=== PATIENT | male | born 1970 | race Caucasian/White ===

== ENCOUNTER → 2018-09-12 | Outpatient (REF) | payer SELFPAY ==
[~2018-09-12] MED LIST: ALLO-119 PO; HYDR-653 PO; HYDR2TAB74 PO; KET10 PO; LISI-362 PO; PRED20TA6 PO
== END ==
LOC: ZZSENDIN 15:44
PROVIDERS: ATTEND Family Medicine
DX: R31.9 Hematuria, unspecified (principal)
CPT/HCPCS: 81001; 87088

== ENCOUNTER → 2018-09-15 | Outpatient (CLI) | payer SELFPAY ==
--- NOTE | 2018-09-15 13:34 | RADIOLOGY IMAGING REPORT ---
FACILITY: [facility] [place] PATIENT NAME: Cassie Dominguez : 1970 MR: [id number] V: [id number] EXAM DATE: ORDERING PHYSICIAN: MICH AUGUSTIN TECHNOLOGIST: Location: [facility] [place] Patient: Cassie Dominguez : 1970 Visit/Account:[id number] Date of Sevice: 09/15/2018 ABDOMEN/PELVIS W/O CONTRAST HISTORY: Right lower quadrant pain, concern for stone, history of hernia surgery TECHNIQUE: Axial images acquired through the abdomen/pelvis. Coronal and sagittal reformatting also performed. No IV contrast administered.Dose Lowering Technique One of the following dose optimization techniques was utilized in the performance of this exam: Autom ated exposure control; adjustment of the mA and/or kV according to the patient's size; or use of an i terative reconstruction technique. Specific details can be referenced in the facility's radiology C T exam operational policy. COMPARISON: None. FINDINGS: Visualized lung bases: There is a 3 mm noncalcified nodule anterolateral left lower lobe best seen o n image 19 of series 5 Hepatobiliary: Negative. Spleen: Negative. Adrenals: Negative. Pancreas: Negative. Kidneys ureters and bladder: There is a 2.1 cm hypoattenuating mass mid pole of the right kidney Houn sfield units suggest this is a cyst there is a subcentimeter hypodensity lower pole of the left kidne y is too small to characterize. There does appear to be a small hyperdensity along the inferior aspe ct of this lesion which could represent calcifications. There is no evidence of hydronephrosis or hy droureter. There is mild bladder wall thickening which could be related to underdistention with urine Genitalia: Negative. GI: Small amount of fluid seen in the distal esophagus. The appendix is visualized and does not pooja ear inflamed Vessels/spaces/nodes: Incidental retroaortic left renal vein Bones/soft tissues: There are postsurgical changes from a left inguinal hernia repair. There are al so postsurgical changes from a ventral hernia repair with mesh .. There are spondylotic changes of the lumbar spine Additional findings: None pertinent. IMPRESSION: 3 mm noncalcified nodule left lower lobe For nodules less than 6 mm in a low risk patient (minimal or absent smoking history, no history of malignancy), no routine followup is recommended. In a high ris k patient (smoking or malignancy history), optional 12 month followup can be obtained. Probable right renal cyst Additional small hypoattenuating lesion lower pole the left kidney with a small hyperdensity along it s inferior aspect which could represent calcification. Mild bladder wall thickening Small amount of fluid in the distal esophagus which could reflect gastroesophageal reflux Postsurgical changes from a left inguinal hernia repair and ventral hernia repair No demonstration of urolithiasis Report Dictated By: Carmel Moore MD at 09/15/2018 1:20 PM Report E-Signed By: Carmel Moore MD at 09/15/2018 1:31 PM WSN:[id number]
== END ==
LOC: CT 07:17
PROVIDERS: ATTEND Family Medicine
DX: R10.817 Generalized abdominal tenderness (principal); R91.8 Other nonspecific abnormal finding of lung field; N28.1 Cyst of kidney, acquired
CPT/HCPCS: 74176